=== PATIENT | female | born 1980 | race Caucasian/White ===

== ENCOUNTER 2021-03-14 08:06 | Day surgery (SDC) | payer BC ==
[~2021-03-14 08:06] MED LIST: Ferumoxytol (NON ERSD) 510 MG in Sodium Chloride 0.9% 250 ML 150 ML IVPB SCH
[2021-03-14 09:12] VITALS: BP 128/61; TEMP 98.4
[2021-03-14] MEDS ORDERED: Sodium Chloride 0.9% 20 ML ONE (09:21)
== END 2021-03-14 10:17 | disposition home or self-care (01) ==
LOC: ONC/OP 08:06
PROVIDERS: ATTEND Student in an Organized Health Care Education/Training Program
DX: D50.9 Iron deficiency anemia, unspecified (principal); Z88.7 Allergy status to serum and vaccine; Z88.8 Allergy status to other drugs, medicaments and biological substances
CPT/HCPCS: 96365; J7050; Q0138